=== PATIENT | male | born 2000 | race Caucasian/White ===

== ENCOUNTER 2021-02-05 16:55 | Emergency (ER) | payer OTHER ==
[~2021-02-05] VITALS: Ht 177.8 cm; Wt 79.4 kg
[2021-02-05 17:04] VITALS: BP 130/88
--- NOTE | 2021-02-05 17:08 | NUR ---
PT AMBULATED TO BED 7
--- NOTE | 2021-02-05 17:09 | NUR ---
20 Y MALE WITH C/O R PINKY LACERATION THAT OCCURED LAST WEDNESDAY AT WORK. PT STATED HE WAS MOVING A GRILL WHEN HE SMASHED HIS FINGER. PT ALSO STATED HE IS EXPERINCING SLIGHT NUMBNESS IN HIS FINGER. PAIN CURRENTLY 10/19, NON-RADIATING AT THIS TIME PMH: DENIES NKA
[2021-02-05] MEDS: IBUPROFEN 600 MG TAB PO ONE (17:16)
--- NOTE | 2021-02-05 17:16 | NUR ---
XRAY BEDSIDE WITH PATIENT
[2021-02-05] MEDS ORDERED: IBUP-2213 PO (17:35)
--- NOTE | 2021-02-05 18:03 | NUR ---
PT's 5th finger on right hand was bandaged with nonadherent dressing and splinted. ER PA notified.
[2021-02-05 18:11] VITALS: BP 130/88
--- NOTE | 2021-02-05 18:12 | NUR ---
Patient discharged with v/s stable. Written and verbal after care instructions given and explained. Patient alert, oriented and verbalized understanding of instructions. Ambulatory with steady gait. All questions addressed prior to discharge. ID band removed. Patient advised to follow up with PMD. Rx of IBUPROFEN (SENT) given. Patient educated on indication of medication including possible reaction and side effects. Opportunity to ask questions provided and answered.
== END 2021-02-05 18:12 | disposition home or self-care (01) ==
LOC: MED 16:55
DX: S61.217A Laceration without foreign body of left little finger without damage to nail, initial encounter (principal); Z79.899 Other long term (current) drug therapy; W22.8XXA Striking against or struck by other objects, initial encounter; Y93.89 Activity, other specified; Y92.89 Other specified places as the place of occurrence of the external cause; Y99.8 Other external cause status
CPT/HCPCS: 29130; 73140; 99283; Q0092